=== PATIENT | male | born 1945 | race Caucasian/White ===

== ENCOUNTER → 2016-12-05 | Outpatient (CLI) | payer OTHER, MEDICARE ==
--- NOTE | 2016-12-05 12:47 | CT ---
CT left hand 1002 hours. History: Prior fracture left third PIP joint with rubber implant. Persistent pain. Technique: Spiral imaging was obtained the left hand. Images were reconstructed down to 0.625 mm slic e thickness and reviewed in multiple planes. Volume rendering was also performed to better visualize osseous detail and relationships. Oblique sagittal and coronal imaging was also reconstructed through the third digit. Dose reduction techniques were utilized. Findings: The implant involving the left third digit PIP joint is identified. This is hypodense with respect to bone slightly more dense than the soft tissues probably representing the known rubber impl ant. At the level of the joint space, there is a lucent line through the implant compatible with sepa ration of the proximal and distal components. There is about 2 mm of posterior subluxation of the mid dle phalanx at the PIP joint with respect to the proximal phalanx. There is a remote healed fracture line seen along the anterolateral aspect distal shaft of the third proximal phalanx. No additional fractures are seen about the left hand. The carpal bones are normal in appearance. Ther e is mild narrowing involving the DIP joints of the second through fifth digits. Joint spaces are oth erwise normal. The soft tissues appear to be normal. The tendon sleeves are in normal position along the fingers. Impression: 1. The implant at the left third PIP joint has a lucent line at the level of the joint space between the proximal and distal components that could represent disruption of the implant. Clinical correlati on recommended. There is about 2 mm of posterior subluxation of the middle phalanx with respect to th e proximal phalanx at this level. 2. Mild joint space narrowing involving the DIP joints of the left second through fifth digits.
== END ==
LOC: FIMAGING 09:39
PROVIDERS: ATTEND Orthopaedic Surgery Hand Surgery
DX: M79.645 Pain in left finger(s) (principal); R93.6 Abnormal findings on diagnostic imaging of limbs; S62.643D Nondisplaced fracture of proximal phalanx of left middle finger, subsequent encounter for fracture with routine healing; Z96.692 Finger-joint replacement of left hand

== ENCOUNTER 2018-01-09 09:26 | Day surgery (SDC) | payer OTHER, MEDICARE ==
[2018-01-09] MEDS ORDERED: LR 1,000 ML IV ONE (13:47)
[2018-01-09] MEDS ORDERED: LIDOCAINE 1% 2 ML INJ ID PRN (13:47)
--- NOTE | 2018-01-09 14:40 | PDHPUP ---
History & Physical Update H&P update statement: This history and physical update is based on an assessment of the patient which was completed after admission or registration (within 24 hours), but prior to the surgery/procedure. H&P update: H&P reviewed & patient examined, no change in patient's condition since H&P completed
[2018-01-09] MEDS ORDERED: ceFAZolin 2 GM/SWFI 2 GM/20 ML SYR IVP ONE (14:42)
[2018-01-09] MEDS ORDERED: BUPIVACAINE 0.5% 30 ML SDV ONE (14:48)
--- NOTE | 2018-01-09 14:50 | PDANEPAE ---
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 - Pulmonary History Hx COPD: No Hx Asthma/Reactive Airway Disease: No Hx Recent Upper Respiratory Infection: No Hx Oxygen in Use at Home: No Hx Sleep Apnea: Yes - Neurologic History Hx Cerebrovascular Accident: No Hx Seizures: No Hx Dementia: No - Endocrine History Hx Diabetes: No - Renal History Hx Renal Disorders: No - Liver History Hx Hepatic Disorders: No - Neurological & Psychiatric Hx Hx Neurological and Psychiatric Disorders: No - Cancer History Hx Cancer: No - Congenital Disorder History Hx Congenital Disorders: No - GI History Hx Gastrointestinal Disorders: Yes Gastrointestinal History Comment: reflux - Other Health History Other Health History: sleep apnea - Chronic Pain History Chronic Pain: No - Surgical History Prior Surgeries: Bypass 2003. cervical neck. lower back. 2 ear surgeries. 3 finger surgeries ANE Review of Systems Review of Systems: - Exercise capacity Exercise capacity: >=4 METS METS (RN): 4 METS ANE Patient History - Allergies Allergies/Adverse Reactions: cyclobenzaprine [From Flexeril] Adverse Reaction (Severe, Verified 01/09/18 14: 10) Other-Enter Comments - Home Medications Home Medications: Aspirin 81mg (*) 01/09/18 [Last Taken 01/08/18] Bactroban 01/09/18 [Last Taken 01/08/18] Cholecalciferol (Vitamin D3) [Vitamin D3] 01/09/18 [Last Taken 01/08/18] Clotrimazole 01/09/18 [Last Taken 01/08/18] Co Q-10 01/09/18 [Last Taken 01/08/18] Crestor 40mg (*) 01/09/18 [Last Taken 01/08/18] Ergocalciferol (Vitamin D2) [Vitamin D2] 01/09/18 [Last Taken 01/08/18] Extina 01/09/18 [Last Taken 01/08/18] Losartan Potassium 01/09/18 [Last Taken 01/08/18] Magnesium 01/09/18 [Last Taken 01/08/18] Multivitamin (*) 01/09/18 [Last Taken 01/08/18] Toprol Xl 50 mg (*) 01/09/18 [Last Taken 01/08/18] - NPO status NPO Since - Liquids (Date): 01/09/18 NPO Since - Liquids (Time): 08:00 NPO Since - Solids (Date): 01/08/18 NPO Since - Solids (Time): 20:00 - Anes Hx Anes Hx: no prior problems - Smoking Hx Smoking Status: Former smoker - Alcohol Use Alcohol Use: Occasionally - Family Anes Hx Family Anes Hx: none ANE Labs/Vital Signs - Vital Signs Blood Pressure: 125/78 Heart Rate: 63 Respiratory Rate: 96 Height: 182.88 cm Weight: 107.955 kg ANE Physical Exam - Airway Neck exam: decreased ROM Mallampati Score: Class 3 Mouth exam: normal dental/mouth exam Mouth image: 1 - studs 2 - studs 3 - studs 4 - studs - Pulmonary Pulmonary: no respiratory distress - Cardiovascular Cardiovascular: regular rate and rhythym - ASA Status ASA Status: III ANE Anesthesia Plan Anesthesia Plan: GA w LMA Regional Anesthesia: single shot NB, adductor canal FNB, popliteal SNB
[2018-01-09] MEDS ORDERED: fentaNYL 100 MCG/2 ML INJ ONE (15:04)
[2018-01-09] MEDS ORDERED: LIDOCAINE 2% 100 MG/5 ML SYR ONE (15:05)
[2018-01-09] MEDS ORDERED: PROPOFOL 200 MG/20 ML VIAL ONE (15:05)
[2018-01-09] MEDS ORDERED: DEXAMETHASONE 4 MG/ML VIAL ONE (15:59)
[2018-01-09] MEDS ORDERED: ONDANSETRON 4 MG/2 ML VIAL ONE (15:59)
[2018-01-09] MEDS ORDERED: PHENYLEPHRINE HCL 100 MCG/ML SYR ONE (16:09)
--- NOTE | 2018-01-09 16:45 | POSTOPPROG ---
Post Op Note Date of Operation: 01/09/18 Surgeon: Jacky Navarro Fountain Vending Mechanic: Hattie Anesthesiologist: Nabila Anesthesia: GET(General Endotracheal) Pre-op Diagnosis: R tibalis ant tendon tear Post-op Diagnosis: same Indication: above Procedure: R tibialis anterior tendon repair Inf/Abcess present in the surg proc area at time of surgery?: No EBL: Minimal
[2018-01-09] MEDS ORDERED: NALOXONE HCL 0.4 MG/ML INJ IVP PRN (16:52)
[2018-01-09] MEDS ORDERED: oxyCODONE IR 5 MG TAB PO PRN (16:52)
[2018-01-09] MEDS ORDERED: PROMETHAZINE HCL 25 MG/ML INJ IVP PRN (16:52)
[2018-01-09] MEDS ORDERED: fentaNYL 100 MCG/2 ML INJ IVP PRN (16:52)
[2018-01-09] MEDS ORDERED: ACETAMINOPHEN 500 MG TAB PO PRN (16:52)
[2018-01-09] MEDS ORDERED: ONDANSETRON 4 MG/2 ML VIAL IVP PRN (16:52)
--- NOTE | 2018-01-09 16:53 | POSTANESTH ---
Post Anesthetic Evaluation Cardiovascular Status: Normal, Stable, Similar to Pre-Op Cond Respiratory Status: Normal, Stable, Similar to Pre-op Cond. Level of Consciousness/Mental Status: Can Participate in Eval, Alert and Oriented Pain Control: Adequate, Prn Tx Ordered Nausea/Vomiting Control: Adequate, Prn Tx Ordered Complications Possibly Related to Anesthesia: None Noted
[2018-01-09 17:09] VITALS: TEMP 97.5
[2018-01-09 17:34] VITALS: BP 114/63; PULSE 58; RESP 14; O2SAT 90
--- NOTE | 2018-01-09 19:32 | GOP ---
[f rep st] OPERATIVE REPORT DATE OF OPERATION: 01/09/2018 SURGEON: Jacky Navarro MD HEAD TRANSFER CLERK: Cuong Kuhn SA. ANESTHESIA: General with popliteal and saphenous nerve block. PREOPERATIVE DIAGNOSIS: Right tibialis anterior tendon tear. POSTOPERATIVE DIAGNOSIS: Right tibialis anterior tendon tear. PROCEDURE PERFORMED: Right anterior tibialis tendon repair. FINDINGS: SPECIMENS: None. ESTIMATED BLOOD LOSS: 5 mL. INDICATIONS: This is a 72-year-old male who ruptured this tibialis anterior tendon about a month ago , in a hyperflexion, plantarflexion injury. He presented to me yesterday with the symptom of slappag e gait. I ordered an MRI, confirming the tear. I counseled him on the risks and benefits of operati ve intervention including need for a tendon transfer, need for an allograft reconstruction, failure o f the primary repair necessitating these operations, nerve injury, vessel injury, infection, stiffnes s, over tensioning, continued pain and need for physical therapy postoperatively. He elected to proc eed. Informed consent obtained, all questions were answered. He was marked preoperatively. DESCRIPTION OF PROCEDURE: He was taken to the operative suite, his leg was sterilely prepped and cricket ped in normal fashion. Time-out was performed verifying the site, side, location and agreed by all m embers of the team. Blocks administered per Anesthesia. Given 2 g of Ancef. The time-out was perfo rmed verifying the patient, side, site, location with all members of the team. Used Esmarch to place a tourniquet. Made an incision over the course of the tibialis anterior tendon . I found the tendon with a complete rupture. This was significantly retracted. There was some sca r tissue forming in the sheath, which was disorganized and debrided. I opened the sheath up and foun d the tendon proximally. I debrided this and then whip-stitched the tendon with #2 FiberWire. Pulle d this distally. I then did tenolysis to free up the tendon proximally, and bring this down further. I was able to bring this down to the cuneiform. I then used a guide pin to localize the site for an anchor. I then drilled 2 holes for the SwiveLock anchors, used 1 SwiveLock with the whip-stitch to track our tendon, to bring this to the bone and an chor this in bone. I used the 2nd suture, and just over sewed the tendon. I then used a 4.5 Bio cor kscrew anchor with twin #2 FiberWires to sew the tendon and anchor this to the bone. Then over-sewed the main distal tendon flap over this, creating a stable construct. It was held in dorsiflexion and eversion while this was occurring. This held nice tension of the anterior tibial tendon. I tested the repair and it was mckeon. He was irrigated, closed with #1 Vicryl, 2-0 Vicryl, 3-0 Quill, and Deric mabond. He was taken to PACU in stable condition. IMPLANTS: Two Arthrex 4.5 SwiveLock anchors, and #2 FiberWire suture. COMPLICATION: None. DRAINS: None. CONDITION: Stable. /[id number]/MODL
== END 2018-01-09 18:14 | disposition home or self-care (01) ==
LOC: FSGY 09:26
PROVIDERS: ATTEND Orthopaedic Surgery
PROC: 0LQV0ZZ Repair Right Foot Tendon, Open Approach (ICD-10-PCS; principal; 2018-01-09 15:30)
DX: S86.211A Strain of muscle(s) and tendon(s) of anterior muscle group at lower leg level, right leg, initial encounter (principal); X50.9XXA Other and unspecified overexertion or strenuous movements or postures, initial encounter; Y99.9 Unspecified external cause status; G47.33 Obstructive sleep apnea (adult) (pediatric); Z95.1 Presence of aortocoronary bypass graft; Z87.891 Personal history of nicotine dependence
CPT/HCPCS: C1713; J0690; J1100; J2001; J2370; J2405; J2704; J3010